=== PATIENT | female | born 1970 ===

== ENCOUNTER 2017-06-17 14:19 | Emergency (ER) | payer MEDICAID ==
[2017-06-17 15:45] LABS: URINE BILIRUBIN NEGATIVE (NEGATIVE); URINE BLOOD 1+ (NEGATIVE); URINE COLOR Straw (YELLOW); URINE GLUCOSE (UA) NORMAL (Normal); URINE KETONE NEGATIVE (NEGATIVE); URINE LEUKOCYTE ESTERASE NEG Leu/uL (Negative); URINE PROTEIN NEGATIVE (NEGATIVE); URINE UROBILINOGEN NORMAL mg/dL (0.2-1.0); WBC URINE 1 /hpf (0-5)
[2017-06-17 15:52] LABS: RBC URINE 2 /hpf (0-3)
[2017-06-17] MEDS ORDERED: Sodium Chloride 0.9% 1,000 ML IV ONE (15:53)
--- NOTE | 2017-06-17 16:19 | C.PDOC ---
History Of Present Illness Patient reports 3 day history of intermittent right sided abdominal pain which radiates to the right lower back and right leg. Patient states she has a history of fibroids and ovarian cysts which feels similar to this episode. Denies vaginal bleeding, dysuria, fever, GI bleeding, trauma, vomiting, diarrhea. Time Seen by Provider: 06/17/17 14:38 Chief Complaint (Nursing): Abdominal Pain History Per: Patient ( ) History/Exam Limitations: no limitations Current Symptoms Are (Timing): Still Present Severity: Moderate Location Of Pain/Discomfort: RLQ Radiation Of Pain To:: Back Quality Of Discomfort: "Pain" Alleviating Factors: None Recent travel outside of the [place]: No Past Medical History Reviewed: Historical Data, Nursing Documentation, Vital Signs Vital Signs: Last Vital Signs Temp 98.6 F 06/17/17 21:11 Pulse 72 06/17/17 21:11 Resp 20 06/17/17 21:11 BP 122/77 06/17/17 21:11 Pulse Ox 98 06/17/17 21:11 - Medical History PMH: Anemia Family History: States: No Known Family Hx - Social History Hx Alcohol Use: No Hx Substance Use: No - Immunization History Hx Tetanus Toxoid Vaccination: No Hx Influenza Vaccination: No Hx Pneumococcal Vaccination: No Review Of Systems Except As Marked, All Systems Reviewed And Found Negative. Gastrointestinal: Positive for: Abdominal Pain Physical Exam - Physical Exam Appears: Non-toxic, No Acute Distress Skin: Normal Color, Warm, No Rash Head: Atraumatic, Normacephalic Eye(s): bilateral: Normal Inspection Oral Mucosa: Moist Neck: Normal ROM, Supple Cardiovascular: Rhythm Regular, No Friction Rub, No Murmur Respiratory: Normal Breath Sounds, No Rales, No Rhonchi, No Wheezing Gastrointestinal/Abdominal: Bowel Sounds (active), Soft, Tenderness (RLQ), No Guarding, No Rebound Back: Normal Inspection, No CVA Tenderness Extremity: Normal ROM, No Swelling Neurological/Psych: Oriented x3, Normal Speech, Normal Motor, Normal Sensation Gait: Steady ED Course And Treatment - Laboratory Results Result Diagrams: 06/17/17 17:15 06/17/17 17:15 O2 Sat by Pulse Oximetry: 100 (RA) Pulse Ox Interpretation: Normal - Other Rad X-Ray - Chest & Abdomen X-Ray: Viewed By Me, Read By Radiologist Interpretation: PROCEDURE: Radiographs of the chest and abdomen (obstructive series). HISTORY: Abdominal pain. COMPARISON: No prior. TECHNIQUE: AP radiograph of the chest, with upright and supine radiographs of the abdomen. FINDINGS: CHEST: Lungs: Clear. Cardiovascular: Normal size heart. No pulmonary vascular congestion. Pleura: No pleural fluid. No pneumothorax. Other findings: None. ABDOMEN AND PELVIS: Bowel: Unremarkable bowel gas pattern. No evidence of mechanical obstruction. Free air: None. Bones: Unremarkable. Other findings: None. IMPRESSION: Unremarkable radiographs of chest and abdomen. No evidence of mechanical bowel obstruction. - CT Scan/US US - Pelvis Other Rad Studies (CT/US): Read By Radiologist, Radiology Report Reviewed CT/US Interpretation: HISTORY: Pelvic pain, history of fibroids and ovarian cyst. Menstrual status: Irregular cycles, LMP unknown. By history, negative test (concurrent with this examination). COMPARISON: None available. TECHNIQUE: Transabdominal, transvaginal. Real -time technique with 2D, duplex and color Doppler. FINDINGS: UTERUS: Measures 9.2 x 11.1 x 15.7 cm. Normal in size and appearance. Location of fibroid(s) and size: Uterine body measures 8.2 x 10.6 x 12.5. ENDOMETRIUM: Measures 11.2 mm in diameter. Trace fluid in the endometrial canal. CERVIX: No cervical abnormality identified. RIGHT OVARY: Measures 2.8 x 3.2 x 4 cm. No solid mass. Normal flow. Simple cyst 1.9 x 2.4 cm. LEFT OVARY: Obscured by overlying bowel gas. Non diagnostic assessment of left ovary. FREE FLUID: Trace free fluid in the pelvis, of right adnexal region. OTHER FINDINGS: None. IMPRESSION: Enlarged myomatous uterus. Endometrial thickening, trace fluid in the endometrial canal. Simple cyst right adnexa. Limitations of the current examination: Nondiagnostic assessment of the left adnexa. Medical Decision Making Medical Decision Making: The patient now states she has been having constipation and is requesting medications for constipation. Patient also states she has been feeling urinary frequency and dysuria, but UA is negative. Will treat for possible UTI and send a urine culture. On re-exam, the patient reports the improvement of symptoms. Lungs are CTA, Lungs are CTA, Abdomen is soft, non-tender and patient is tolerating PO well. Patient is ambulatory in the ED with the steady gait. Follow up with the medical doctor within 1-2 days. Return if worsened. Disposition - Disposition Referrals: Tatianna Frausto MD [Staff Provider] - Disposition: HOME/ ROUTINE Disposition Time: 19:26 Condition: GOOD Additional Instructions: Follow up with the medical doctor within 1-2 days. Return if worsened. Prescriptions: Nitrofurantoin Macrocrystals [Macrobid] 1 cap PO BID #14 cap oxyCODONE/Acetaminophen [Percocet 5/325 mg Tab] 1 tab PO QID PRN #7 tab PRN Reason: Pain Phenazopyridine HCl [Pyridium] 200 mg PO TID #10 tablet Polyethylene Glycol 3350 [Miralax] 17 gm PO DAILY PRN #100 ml PRN Reason: Constipation Instructions: Uterine Fibroids (ED), Urinary Tract Infection in Women (ED) Forms: [facility] [employer] [facility] (Irish) Print Language: H[place] K[place]ER - Clinical Impression Clinical Impression: Uterine fibroid, Ovarian cyst, Dysuria
[2017-06-17] MEDS ORDERED: Sodium Chloride 0.9% 1,000 ML ONE (16:33)
[2017-06-17 17:18] LABS: BASO % 0.3 % (0.0-2.0); EOS % 0.3 % (0.0-4.0); HEMATOCRIT 36.2 % (34.0-47.0); LYMPH # 1.1 K/uL (1.0-4.3); LYMPH % 7.4 % (20.0-40.0); MEAN CORPUSCULAR HEMOGLOBIN 25.2 pg (27.0-31.0); MEAN CORPUSCULAR HGB CONC 32.2 g/dL (33.0-37.0); MEAN PLATELET VOLUME 8.3 fL (7.2-11.7); MONO # 0.7 K/uL (0.0-0.8); MONO % 4.7 % (0.0-10.0); PLATELET COUNT 371 K/uL (130-400); RED CELL DISTRIBUTION WIDTH 22.3 % (11.5-14.5); WHITE BLOOD COUNT 14.2 K/uL (4.8-10.8)
[2017-06-17 17:27] LABS: CHLORIDE 107 mmol/L (98-107)
[2017-06-17 17:28] LABS: POTASSIUM 3.9 mmol/L (3.6-5.2); SODIUM 137 mmol/L (132-148)
[2017-06-17 17:31] LABS: ALB/GLOB RATIO 1.1 (1.0-2.1); ALKALINE PHOSPHATASE 45 U/L (38-126); ALT/SGPT 24 U/L (9-52); AST/SGOT 20 U/L (14-36); BLOOD UREA NITROGEN 8 mg/dL (7-17); CALCIUM 8.9 mg/dl (8.6-10.4); CARBON DIOXIDE 19 mmol/L (22-30); GFR AFRICAN-AMERICAN > 60; GLUCOSE,RANDOM 103 mg/dL (65-105); TOTAL PROTEIN 7.2 g/dL (6.3-8.3)
[2017-06-17 17:58] LABS: NEUTROPHIL 88 % (50-75); TOTAL CELLS COUNTED 100
--- NOTE | 2017-06-17 18:10 | RAD ---
PROCEDURE: Radiographs of the chest and abdomen (obstructive series) HISTORY: Abdominal pain. COMPARISON: No prior. TECHNIQUE: AP radiograph of the chest, with upright and supine radiographs of the abdomen. FINDINGS: CHEST: Lungs: Clear. Cardiovascular: Normal size heart. No pulmonary vascular congestion. Pleura: No pleural fluid. No pneumothorax. Other findings: None. ABDOMEN AND PELVIS: Bowel: Unremarkable bowel gas pattern. No evidence of mechanical obstruction. Free air: None. Bones: Unremarkable. Other findings: None. IMPRESSION: Unremarkable radiographs of chest and abdomen. No evidence of mechanical bowel obstruction.
--- NOTE | 2017-06-17 18:13 | US ---
HISTORY: Pelvic pain, history of fibroids and ovarian cyst. Menstrual status: Irregular cycles, LMP unknown. By history, negative test (concurrent with this examination). COMPARISON: None available. TECHNIQUE: Transabdominal, transvaginal. Real -time technique with 2D, duplex and color Doppler. FINDINGS: UTERUS: Measures 9.2 x 11.1 x 15.7 cm. Normal in size and appearance. Location of fibroid(s) and size: Uterine body measures 8.2 x 10.6 x 12.5 ENDOMETRIUM: Measures 11.2 mm in diameter. Trace fluid in the endometrial canal. CERVIX: No cervical abnormality identified. RIGHT OVARY: Measures 2.8 x 3.2 x 4 cm. No solid mass. Normal flow. Simple cyst 1.9 x 2.4 cm LEFT OVARY: Obscured by overlying bowel gas. Non diagnostic assessment of left ovary. FREE FLUID: Trace free fluid in the pelvis, of right adnexal region. OTHER FINDINGS: None. IMPRESSION: Enlarged myomatous uterus. Endometrial thickening, trace fluid in the endometrial canal. Simple cyst right adnexa. Limitations of the current examination: Nondiagnostic assessment of the left adnexa.
[2017-06-17] MEDS ORDERED: Oxycodone/Acetaminophen 5/325 mg Tab PO STA (19:40)
[2017-06-17] MEDS ORDERED: Oxycodone/Acetaminophen 5/325 mg Tab ONE (19:45)
[2017-06-17 21:12] VITALS: BP 122/77; PULSE 72; RESP 20; TEMP 98.6
[2017-06-17 23:26] VITALS: O2SAT 100
== END 2017-06-17 21:12 | disposition home or self-care (01) ==
LOC: C.ER 14:19
DX: D25.9 Leiomyoma of uterus, unspecified (principal); N83.201 Unspecified ovarian cyst, right side; R30.0 Dysuria
CPT/HCPCS: 74022; 76830; 76856; 80053; 81001; 83690; 84703; 85025; 96361; 96374; 96375; 99285; J1885; J2405; J7040